=== PATIENT | female | born 1975 | race African-American/Black ===

== ENCOUNTER 2019-07-27 13:30 | Outpatient (CLI) | payer OTHER ==
--- NOTE | 2019-07-27 14:18 | RAD ---
PA AND LATERAL CHEST: Date: 07/27/2019 HISTORY: Cough. FINDINGS: Heart size is enlarged. Mediastinal structures appear unremarkable. Lungs are clear of infiltrates. T here are no signs of failure. IMPRESSION: Cardiomegaly. POS: [facility]
== END 2019-07-27 13:31 | disposition home or self-care (01) ==
LOC: RAD-FRANK 13:30
PROVIDERS: ATTEND Internal Medicine
DX: J40 Bronchitis, not specified as acute or chronic (principal); I51.7 Cardiomegaly
CPT/HCPCS: 71046

== ENCOUNTER 2021-01-25 12:02 | Emergency (ER) | payer OTHER ==
[2021-01-25 19:27] LABS: SARS-CoV-2 PCR by NAA DETECTED (NotDetected)
== END 2021-01-25 13:15 | disposition home or self-care (01) ==
LOC: ERS 12:02
DX: U07.1 COVID-19 (principal)
CPT/HCPCS: 99284; U0003; U0005

== ENCOUNTER 2025-02-02 14:20 | Outpatient (CLI) | payer OTHER | END 2025-02-02 14:21 | disposition home or self-care (01) | LOC: BICMAMMO 14:20 | PROVIDERS: ATTEND Nurse Practitioner Family | DX: Z12.31 Encounter for screening mammogram for malignant neoplasm of breast (principal) | CPT/HCPCS: 77063; 77067 ==

== ENCOUNTER 2025-03-20 15:18 | Emergency (ER) | payer OTHER | END 2025-03-20 19:05 | disposition home or self-care (01) | LOC: ERS 15:18 | DX: M79.10 Myalgia, unspecified site (principal); E66.9 Obesity, unspecified ==